=== PATIENT | female | born 1955 | race Caucasian/White ===

== ENCOUNTER → 2022-06-15 | Outpatient (CLI) | payer MEDICARE ==
--- NOTE | 2022-06-15 16:31 | Diagnostic Imaging Report ---
INDICATION: Non-Hodgkin's lymphoma, restaging. TECHNIQUE: Serum blood glucose level at the time of injection is 103 mg/dL. Patient was administered 14.6 mCi F-18 FDG intravenously in the right antecubital location and PET imaging was performed from the top of the skull to mid thighs. Noncontrast CT was also performed for attenuation correction and anatomic correlation. COMPARISON: No prior studies are available for comparison. FINDINGS: There is abnormal hypermetabolism in the high left frontoparietal scalp with an SUV max of 22. Additional smaller foci of hypermetabolism in the remainder of the scalp are also noted. Brain parenchyma does show symmetric activity. Soft tissues of the neck are unremarkable. No mediastinal or hilar hypermetabolism is seen. No definite pulmonary parenchymal hypermetabolism is seen. There is physiologic activity throughout the GI and tract of the abdomen and pelvis. No suspicious foci of hypermetabolism are identified. There are numerous areas of sclerosis involving the bilateral ribs as well as the right hemipelvis and left femur as well as the lower thoracic spine. There is also sclerosis of the right clavicle. There are areas of sclerosis in the calvarium. These areas do not appear to be hypermetabolic. IMPRESSION: There is a hypermetabolic soft tissue mass in the scalp in the high left frontoparietal region. Additional smaller patchy areas of slightly elevated metabolism in the scalp are also seen. No other suspicious regions of hypermetabolism are identified. There are innumerable sclerotic foci throughout the axial and appendicular skeleton. Dictated by: Dictated on workstation # [id number]
== END ==
LOC: RAD 08:56
PROVIDERS: ATTEND Internal Medicine Hematology & Oncology
DX: C85.90 Non-Hodgkin lymphoma, unspecified, unspecified site (principal); R22.0 Localized swelling, mass and lump, head

== ENCOUNTER → 2023-02-22 | Outpatient (CLI) | payer MEDICARE ==
[~2023-02-22] MED LIST: CATHETER FLUSH 10 ML SYR IVP PRN
--- NOTE | 2023-02-22 18:26 | Diagnostic Imaging Report ---
INDICATION: Subsequent staging, malignant neoplasm of the bronchus and lung. TECHNIQUE: Serum blood glucose level at the time of injection is 80 mg/dL. Patient was administered 10.4 mCi F-18 FDG intravenously in the left antecubital location, and PET imaging was performed from the top of the skull to mid thighs. Noncontrast CT was also performed for attenuation correction and anatomic correlation. COMPARISON: Correlation is made with prior PET/CT from 06/15/2022. FINDINGS: There is symmetric activity throughout the brain. There are multiple areas of hypermetabolism in the scalp. SUV reaches 16. There has been development of multiple hypermetabolic masses in the left neck. A soft tissue mass the region of the parotid on the left side demonstrates SUV max of 32. Hypermetabolic masses in the left occipital scalp demonstrate an SUV max of 31. Multiple additional hypermetabolic masses in the left neck in the jugulodigastric and posterior cervical chain are noted. There is some left supraclavicular hypermetabolic lymphadenopathy as well, which appears new. There are several hypermetabolic foci in the right jugulodigastric lymph nodes as well as just lateral to the right submandibular gland. No mediastinal or hilar hypermetabolism is identified. No pulmonary parenchymal hypermetabolism is detected. There is physiologic activity throughout the gastrointestinal and genitourinary tracts of the abdomen and pelvis. No suspicious areas of hypermetabolism are seen. There are areas of sclerosis in the left proximal femur as well as the right hemipelvis, uncertain if this is metastatic or owing to Paget's disease. This is similar to prior PET/CT study from 2021. IMPRESSION: Worsening hypermetabolic foci throughout the scalp as well as development of bilateral hypermetabolic cervical lymphadenopathy and left supraclavicular lymphadenopathy, greater on the left. No hypermetabolic lesions are seen within the chest, abdomen, or pelvis. Dictated by: Dictated on workstation # [id number]
== END ==
LOC: RAD 10:35
PROVIDERS: ATTEND Internal Medicine Hematology & Oncology
DX: R59.1 Generalized enlarged lymph nodes (principal); C34.90 Malignant neoplasm of unspecified part of unspecified bronchus or lung
CPT/HCPCS: 78815; 82947; A9552

== ENCOUNTER → 2023-05-03 | Outpatient (CLI) | payer MEDICARE ==
--- NOTE | 2023-05-04 15:10 | Diagnostic Imaging Report ---
INDICATION: Subsequent staging lung carcinoma and B-cell non-Hodgkin's lymphoma. Serum blood glucose level at the time of injection is 80 mg/dL. The patient was administered 10.3 mCi F-18 FDG intravenously in the left antecubital location and PET imaging was performed from the top of the skull to mid thighs. Noncontrast CT was also performed for attenuation correction and anatomic correlation. COMPARISON is made with prior PET/CT study from 02/22/2023. There is symmetric activity throughout the brain. Previously noted abnormal activity throughout the scalp, particularly on the left side, is no longer present. Previously noted hypermetabolic lymphadenopathy in the cervical regions bilaterally as well as the left supraclavicular region has resolved. No mediastinal or hilar hypermetabolism is identified. No pulmonary parenchymal hypermetabolism is identified. There is physiologic activity throughout the gastrointestinal and genitourinary tracts of the abdomen and pelvis. No suspicious foci of hypermetabolism are detected. There is uptake throughout the osseous structures consistent with treatment response. IMPRESSION: Resolution of hypermetabolic lesions in the scalp as well as bilateral cervical lymph nodes and left supraclavicular nodes when compared with prior PET/CT study from 02/22/2023. Dictated by: Dictated on workstation # [id number]
== END ==
LOC: RAD 07:23
PROVIDERS: ATTEND Internal Medicine Hematology & Oncology
DX: C83.39 Diffuse large B-cell lymphoma, extranodal and solid organ sites (principal); R59.0 Localized enlarged lymph nodes
CPT/HCPCS: 78815; 82947; A9552